=== PATIENT | female | born 1940 | race Caucasian/White ===

== ENCOUNTER 2019-04-13 11:28 | Emergency (ER) | payer MEDICARE, MEDICAID ==
[~2019-04-13] VITALS: Ht 157.5 cm; Wt 100.0 kg
[~2019-04-13 11:28] MED LIST: B50; BENA40TA9; DIGO125T82; GABA-529; GLV25; HYDR25TA; METF-416 PO; NAPR-681; OMEP20TA2; SIMV20TA6; TRAM50TA
[2019-04-13] MEDS ORDERED: KETOROLAC 30MG/ML VIAL IV STA (13:13)
[2019-04-13] MEDS ORDERED: SODIUM CHLORIDE 0.9% 1,000 ML IV ONE (13:13)
[2019-04-13] MEDS ORDERED: ONDANSETRON HCL 4MG/2ML INJ IV ONE (13:30)
[2019-04-13 13:48] LABS: BASOPHILS % 0.7 % (0.0-2.0); EOSINOPHILS % 0.7 % (0.0-5.0); HEMATOCRIT. 40.5 % (36.0-48.0); HEMOGLOBIN. 13.5 g/dL (12.0-16.0); MEAN CORPUSCULAR HEMOGLOBIN 28.9 pg (28.0-32.0); MEAN CORPUSCULAR VOLUME 86.3 fL (81.0-99.0); MEAN PLATELET VOLUME 8.1 fl (7.4-10.4); MONOCYTES % 7.3 % (2.0-8.0); NEUTROPHILS % 66.3 % (40.0-76.0); PLATELET 299 x1000/uL (130-400); RED BLOOD CELL COUNT 4.69 mill/uL (4.2-5.4); RED CELL DISTRIBUTION WIDTH 14.3 % (11.6-14.6)
[2019-04-13 13:55] LABS: CHLORIDE 104 mEq/L (98-107)
[2019-04-13 14:03] LABS: CLARITY URINE CLOUDY (CLEAR); COLOR URINE RED (YELLOW); KETONES URINE NEGATIVE (NEGATIVE); LEUKOCYTE ESTERASE URINE TRACE (NEGATIVE); NITRITE URINE NEGATIVE (NEGATIVE); OCCULT BLOOD URINE 3+ (NEGATIVE); PROTEIN URINE 2+ (NEGATIVE); SPECIFIC GRAVITY URINE 1.009 (1.005-1.030); UROBILINOGEN URINE 0.2 E.U./dL (0.2-1.0)
[2019-04-13 14:15] LABS: DIGOXIN 0.2 ng/mL (0.9-2.0)
[2019-04-13] MEDS ORDERED: CEFTRIAXONE 1 G PREMIX 50 ML IV ONE (15:00)
[2019-04-13 18:41] VITALS: BP 147/85
== END 2019-04-13 19:13 | disposition home or self-care (01) ==
LOC: ER 11:39
DX: N13.2 Hydronephrosis with renal and ureteral calculous obstruction (principal); N39.0 Urinary tract infection, site not specified; R31.9 Hematuria, unspecified; E11.9 Type 2 diabetes mellitus without complications; I10 Essential (primary) hypertension; Z85.42 Personal history of malignant neoplasm of other parts of uterus; Z90.710 Acquired absence of both cervix and uterus; Z88.4 Allergy status to anesthetic agent
CPT/HCPCS: 36415; 74176; 80053; 80162; 81003; 85025; 96365; 96375; 99284; J0696; J1885; J7030

== ENCOUNTER 2022-04-11 22:03 | Emergency (ER) | payer MEDICARE, OTHER ==
[~2022-04-11] VITALS: Ht 170.2 cm; Wt 84.0 kg
[~2022-04-11 22:03] MED LIST changes: -BENA40TA9; +BENA40TA91; +DIGO125T80; -DIGO125T82; -OMEP20TA2; +OMEP20TA23; +SIMV-43; -SIMV20TA6
[2022-04-11] MEDS ORDERED: HYDROCODONE/ACETAMINOPHEN 5/325MG TABLET PO STA (23:40)
[2022-04-12 00:09] LABS: BASOPHILS % 0.3 % (0.0-2.0); EOSINOPHILS % 0.5 % (0.0-5.0); HEMATOCRIT. 39.1 % (36.0-48.0); HEMOGLOBIN. 12.7 g/dL (12.0-16.0); MEAN CORPUSCULAR HEMOGLOBIN 26.4 pg (28.0-32.0); MEAN CORPUSCULAR VOLUME 81.5 fL (81.0-99.0); MEAN PLATELET VOLUME 8.3 fl (7.4-10.4); MONOCYTES % 5.3 % (2.0-8.0); NEUTROPHILS % 68.9 % (40.0-76.0); PLATELET 361 x1000/uL (130-400); RED CELL DISTRIBUTION WIDTH 16.1 % (11.6-14.6)
[2022-04-12 00:21] LABS: CHLORIDE 97 mEq/L (98-107)
[2022-04-12] MEDS ORDERED: POTASSIUM CHLORIDE 20MEQ TABLET SR PO NR ×2 (02:15→08:30)
[2022-04-12] MEDS ORDERED: TAMS-11 MT (07:03)
[2022-04-12] MEDS ORDERED: TOPUD MT (07:03)
[2022-04-12] MEDS ORDERED: CEPH500C2 MT (07:03)
[2022-04-12] MEDS ORDERED: CEFTRIAXONE 1 G PREMIX 50 ML IV SCH ×2 (07:15→08:30)
[2022-04-12] MEDS ORDERED: HYDROCODONE/ACETAMINOPHEN 5/325MG TABLET PO NR (08:30)
[2022-04-12 11:53] LABS: CLARITY URINE TURBID (CLEAR); COLOR URINE DARK YELLOW (YELLOW); KETONES URINE TRACE (NEGATIVE); LEUKOCYTE ESTERASE URINE 3+ (NEGATIVE); NITRITE URINE POSITIVE (NEGATIVE); OCCULT BLOOD URINE 3+ (NEGATIVE); PH URINE 5.5 (4.5-8.0); PROTEIN URINE 2+ (NEGATIVE); SPECIFIC GRAVITY URINE 1.019 (1.005-1.030)
[2022-04-12] MEDS ORDERED: DEXT 5%/0.9% NACL 1,000 ML IV ONE (21:00)
[2022-04-13 08:47] VITALS: BP 131/68
== END 2022-04-12 15:15 | disposition home or self-care (01) ==
LOC: ER 22:03
DX: R30.0 Dysuria (principal); I10 Essential (primary) hypertension; E11.9 Type 2 diabetes mellitus without complications; I48.91 Unspecified atrial fibrillation; Z85.42 Personal history of malignant neoplasm of other parts of uterus; Z90.710 Acquired absence of both cervix and uterus; Z79.84 Long term (current) use of oral hypoglycemic drugs; Z79.01 Long term (current) use of anticoagulants; Z88.8 Allergy status to other drugs, medicaments and biological substances
CPT/HCPCS: 36415; 76705; 80053; 81001; 83690; 85025; 87086; 96365; 99285; J0696; J7042

== ENCOUNTER 2022-08-08 11:02 | Inpatient (IN) | payer MEDICARE, OTHER ==
[~2022-08-08] VITALS: Ht 165.1 cm; Wt 97.5 kg
[~2022-08-08 11:02] MED LIST changes: +CEPH500C2 MT; +TAMS-11 MT; +TOPUD MT
[2022-08-08 12:52] LABS: BASOPHILS % 0.3 % (0.0-2.0); EOSINOPHILS % 2.1 % (0.0-5.0); HEMATOCRIT. 35.7 % (36.0-48.0); HEMOGLOBIN. 11.8 g/dL (12.0-16.0); MEAN CORPUSCULAR HEMOGLOBIN 26.6 pg (28.0-32.0); MEAN CORPUSCULAR VOLUME 80.6 fL (81.0-99.0); MEAN PLATELET VOLUME 8.1 fl (7.4-10.4); MONOCYTES % 7.5 % (2.0-8.0); NEUTROPHILS % 66.1 % (40.0-76.0); PLATELET 360 x1000/uL (130-400); RED BLOOD CELL COUNT 4.43 mill/uL (4.2-5.4)
[2022-08-08 13:00] LABS: CHLORIDE 104 mEq/L (98-107)
[2022-08-08 13:18] LABS: INR 1.1; PROTHROMBIN TIME 11.8 sec (9.6-11.0)
[2022-08-08] MEDS ORDERED: SODIUM CHLORIDE 0.9% 1000ML BAG (SEPSIS BOLUS) IV ONE (13:45)
[2022-08-08] MEDS ORDERED: CEFTRIAXONE 1GM PREMIX 50 ML IV ONE (13:45)
[2022-08-08 15:54] LABS: CLARITY URINE TURBID (CLEAR); COLOR URINE ORANGE (YELLOW); KETONES URINE NEGATIVE (NEGATIVE); LEUKOCYTE ESTERASE URINE 3+ (NEGATIVE); NITRITE URINE POSITIVE (NEGATIVE); OCCULT BLOOD URINE 3+ (NEGATIVE); PH URINE 5.5 (4.5-8.0); PROTEIN URINE 2+ (NEGATIVE); SPECIFIC GRAVITY URINE 1.016 (1.005-1.030)
[2022-08-08] MEDS ORDERED: CEFTRIAXONE 1GM PREMIX 50 ML IV NR (16:40)
[2022-08-08] MEDS ORDERED: KETOROLAC 30MG/ML VIAL IV ONE (18:00)
[2022-08-08] MEDS ORDERED: DILTIAZEM HCL 120MG CAPSULE ER 24HR PO ONE (19:15)
[2022-08-08 22:40] VITALS: BP 130/82
[2022-08-09] VITALS: BP 124/51
[2022-08-09] MEDS ORDERED: DEXTROSE 50% WATER 50ML SYRINGE IV PRN (00:15)
[2022-08-09] MEDS: SODIUM CHLORIDE 0.9% 1,000 ML IV SCH ×2 (02:28→13:28)
[2022-08-09] MEDS ORDERED: CEFEPIME 1,000 MG in DEXTROSE 5% WATER 50 ML IV SCH (03:00)
[2022-08-09 04:00] VITALS: BP 109/48
[2022-08-09] MEDS: BLOOD SUGAR DIAGNOSTIC STRIP TEST SCH ×4 (05:20→20:54)
[2022-08-09 07:28] LABS: BASOPHILS % 0.3 % (0.0-2.0); EOSINOPHILS % 2.2 % (0.0-5.0); HEMATOCRIT. 33.3 % (36.0-48.0); LYMPHOCYTES % 26.6 % (20.0-50.0); MEAN CORPUSCULAR VOLUME 81.6 fL (81.0-99.0); MEAN PLATELET VOLUME 8.6 fl (7.4-10.4); MONOCYTES % 6.5 % (2.0-8.0); NEUTROPHILS % 64.4 % (40.0-76.0); PLATELET 182 x1000/uL (130-400); RED BLOOD CELL COUNT 4.09 mill/uL (4.2-5.4); RED CELL DISTRIBUTION WIDTH 15.2 % (11.6-14.6)
[2022-08-09 08:00] VITALS: BP 123/60
[2022-08-09] MEDS ORDERED: INSULIN LISPRO 100 UNITS/ML SUBCUT SCH (08:10)
[2022-08-09 08:35] LABS: CHLORIDE 108 mEq/L (98-107)
[2022-08-09] MEDS ORDERED: PNEUMOCOCCAL 23-VAL P-SAC VAC 0.5 ML IM ONE (09:00)
[2022-08-09] MEDS: PANTOPRAZOLE SODIUM 40 MG/VIAL IV SCH (09:30)
[2022-08-09] MEDS: GABAPENTIN 100MG CAPSULE PO SCH ×3 (09:30→17:37)
[2022-08-09 12:00] VITALS: BP 133/70
[2022-08-09 16:00] VITALS: BP 130/51
[2022-08-09] MEDS ORDERED: ACETAMINOPHEN 325MG TABLET PO PRN (17:00)
[2022-08-09] MEDS: CEFEPIME 1GM PREMIX 50 ML IV SCH (17:38)
[2022-08-09] MEDS ORDERED: DIGOXIN 125MCG TABLET PO SCH (18:00)
[2022-08-09] MEDS ORDERED: HYDROCORTISONE 1% RECTAL CREAM 30GM PR SCH (21:00)
[2022-08-10] VITALS: BP 113/80
[2022-08-10] MEDS: CEFEPIME 1GM PREMIX 50 ML IV SCH (02:44)
[2022-08-10 04:00] VITALS: BP 140/72
[2022-08-10 06:32] LABS: HEMATOCRIT 34.2 % (36.0-48.0); HEMOGLOBIN 11.3 g/dL (12.0-16.0)
[2022-08-10] MEDS: BLOOD SUGAR DIAGNOSTIC STRIP TEST SCH (07:40)
[2022-08-10] MEDS: GABAPENTIN 100MG CAPSULE PO SCH (08:35)
[2022-08-10] MEDS: PANTOPRAZOLE SODIUM 40 MG/VIAL IV SCH (08:35)
[2022-08-10] MEDS ORDERED: SORBITOL 70% SOLN 30ML PO SCH (09:00)
[2022-08-10] MEDS ORDERED: TRAM50TA3 PO (13:20)
[2022-08-10] MEDS ORDERED: NITR-87 MT (13:20)
[2022-08-10] MEDS ORDERED: CEFTRIAXONE 1GM PREMIX 50 ML IV SCH (15:00)
[2022-08-10 19:21] VITALS: BP 139/78
== END 2022-08-10 20:20 | disposition home or self-care (01) | DRG 463 ==
LOC: ER 11:28 → 7WST 19:17
PROVIDERS: ADMIT Internal Medicine; ATTEND Internal Medicine
DX: N13.6 Pyonephrosis (principal); E11.22 Type 2 diabetes mellitus with diabetic chronic kidney disease; I13.10 Hypertensive heart and chronic kidney disease without heart failure, with stage 1 through stage 4 chronic kidney disease, or unspecified chronic kidney disease; D50.9 Iron deficiency anemia, unspecified; E66.9 Obesity, unspecified; E78.5 Hyperlipidemia, unspecified; K57.30 Diverticulosis of large intestine without perforation or abscess without bleeding; K64.9 Unspecified hemorrhoids; K92.1 Melena; N20.2 Calculus of kidney with calculus of ureter; Z68.35 Body mass index [BMI] 35.0-35.9, adult; R31.9 Hematuria, unspecified; Z87.442 Personal history of urinary calculi; Z74.01 Bed confinement status; Z90.710 Acquired absence of both cervix and uterus; Z85.42 Personal history of malignant neoplasm of other parts of uterus; N21.0 Calculus in bladder; N18.9 Chronic kidney disease, unspecified; I48.91 Unspecified atrial fibrillation
CPT/HCPCS: 36415; 71045; 74176; 80048; 80053; 81003; 82270; 82962; 83036; 83605; 84484; 85014; 85018; 85025; 85044; 86850; 86900; 87186; 90732; 93005; 99291; A6261; C1893; C9113; J0692; J0696; J1885; J7030; J7060